=== PATIENT | male | born 1930 | race Caucasian/White ===

== ENCOUNTER 2019-05-09 22:59 | Inpatient (IN) | payer MEDICAID, MEDICARE, OTHER ==
[~2019-05-09] VITALS: Ht 177.8 cm; Wt 79.6 kg
[~2019-05-09 22:59] MED LIST: ASPI-612 PO; ATOR10TA87 PO; CLOP75TA35 PO; FURO-150 PO; GLIP-126 PO; LISI-600 PO; NORCO10T PO; POTA20TA84 PO
[2019-05-09 23:39] LABS: BASOPHILS # (AUTO) 0.1 X10'3 (0-0.2); EOSINOPHILS # (AUTO) 0.4 X10'3 (0-0.9); EOSINOPHILS % (AUTO) 4.4 % (0-6); HEMATOCRIT 38.6 % (42.0-52.0); HEMOGLOBIN 12.8 g/dl (14.0-17.9); LYMPHOCYTES # (AUTO) 0.4 X10'3 (1.1-4.8); LYMPHOCYTES % (AUTO) 4.4 % (21-51); MEAN CORPUSCULAR HEMOGLOBIN 29.6 PG (27.0-31.0); MEAN CORPUSCULAR HGB CONC 33.2 g/dL (33.0-36.5); MEAN CORPUSCULAR VOLUME 89.1 FL (78-98); MEAN PLATELET VOLUME 8.1 FL (7.4-10.4); MONOCYTES # (AUTO) 0.5 X10'3 (0-0.9); MONOCYTES % (AUTO) 5.7 % (2-12); NEUTROPHILS # (AUTO) 7.8 X10'3 (1.8-7.7); NEUTROPHILS % (AUTO) 84.5 % (42-75); PLATELET COUNT 218 X10'3 (140-440); RED BLOOD COUNT 4.33 X10'6 (4.70-6.10); RED CELL DISTRIBUTION WIDTH 15.2 % (11.5-14.5); WHITE BLOOD COUNT 9.2 X10'3 (4.5-11.0)
[2019-05-09 23:43] LABS: PARTIAL THROMBOPLASTIN TIME 27 SECONDS (22-32)
[2019-05-09 23:45] LABS: ALANINE AMINOTRANSFERASE 17 U/L (12-78); ALBUMIN 3.2 G/DL (3.4-5.0); ALBUMIN/GLOBULIN RATIO 0.8 (1.1-1.5); ALKALINE PHOSPHATASE 91 IU/L (46-116); ANION GAP 9 (8-16); ASPARTATE AMINO TRANSFERASE 19 U/L (10-37); BILIRUBIN,TOTAL 0.2 MG/DL (0.1-1.0); BLOOD UREA NITROGEN 32 MG/DL (7-18); BUN/CREATININE RATIO 16.6 (5.4-32.0); CALCIUM 8.3 MG/DL (8.5-10.1); CHLORIDE 105 MMOL/L (99-107); CREATININE 1.93 MG/DL (0.60-1.10); GLUCOSE 102 MG/DL (70-104); POTASSIUM 4.3 MMOL/L (3.5-5.1); SODIUM 139 MMOL/L (135-145); TOTAL CARBON DIOXIDE 24.8 MMOL/L (24-32); eGFR 33 ML/MIN
[2019-05-09 23:48] LABS: TROPONIN I 0.09 NG/ML (0.0-0.05)
[2019-05-10] MEDS ORDERED: heparin 10,000 units/1 ML INJ IV ONE (01:50)
[2019-05-10] MEDS ORDERED: heparin 10,000 units/1 ML INJ IV PRN ×2 (01:50→03:05)
[2019-05-10] MEDS: heparin 25,000 UNIT/250ml bag 250 ML IV SCH ×2 (02:14→10:07)
[2019-05-10] MEDS ORDERED: ASPI-1265 PO (02:24)
[2019-05-10] MEDS ORDERED: LISI-600 PO (02:24)
[2019-05-10] MEDS ORDERED: FLO0.4C PO (02:24)
[2019-05-10] MEDS ORDERED: FINA5TAB11 PO (02:24)
[2019-05-10] MEDS ORDERED: heparin 25,000 UNIT/250ml bag 250 ML IV SCH (03:04)
[2019-05-10] MEDS ORDERED: insulin Lispro (HumaLOG) vial - multi-dose SQ SCH (03:05)
[2019-05-10] MEDS ORDERED: glucagon, human recombinant 1mg kit SUBCUT PRN (03:05)
[2019-05-10] MEDS ORDERED: docusate sod 100mg capsule PO PRN (03:05)
[2019-05-10] MEDS ORDERED: magnesium 2GM in 50ml NS 50 ML IV PRN (03:05)
[2019-05-10] MEDS ORDERED: mag hydrox/Alum hydrox/simeth 30ml oral suspension PO PRN (03:05)
[2019-05-10] MEDS ORDERED: dextrose 50%-water 50ml dispensing syringe IV PRN ×2 (03:05)
[2019-05-10] MEDS ORDERED: potassium Cl 20 mEq SR tablet PO PRN ×2 (03:05)
[2019-05-10] MEDS ORDERED: potassium CL 10mEq/100ml bag 100 ML IV PRN ×2 (03:05)
[2019-05-10] MEDS ORDERED: dextrose ORAL solution 15 GM/59 ML bottle PO PRN ×2 (03:05)
[2019-05-10] MEDS ORDERED: acetaminophen 325mg tablet PO PRN (03:05)
[2019-05-10] MEDS ORDERED: magnesium 4gm in 100ml NS 100 ML IV PRN (03:05)
[2019-05-10] MEDS ORDERED: MESSAGE TO PHARMACY PO ONE (03:05)
[2019-05-10] MEDS ORDERED: ondansetron/PF 4mg/2ml inj IV PRN (03:05)
[2019-05-10 03:32] LABS: HEMOGLOBIN A1C 5.5 % (4.5-6.2)
--- NOTE | 2019-05-10 04:20 | NUR ---
I have received report from EMANUEL Royal in ER and had the opportunity to ask questions and assume patient care. Awaiting patient arrival into [facility].
[2019-05-10 04:40] VITALS: BP 163/87
--- NOTE | 2019-05-10 04:58 | NUR ---
Patient arrived to floor via gurney by ED staff, EMANUEL Diez and mary carmen. Ambulated from gurney to bed in 3 with 2 person assist. Patient on room air and slightly dyspneic. O2 97%. On heparin gtt infusing at 1000 units/hr per provider protocol. Alert and oriented to person, place, time, and events. Patient states belongings went home with son.
[2019-05-10 06:00] VITALS: BP 126/74
--- NOTE | 2019-05-10 06:13 | NUR ---
Patient in room PCU 3028. I have received report from Alex CASTELLANOS and had the opportunity to ask questions and assume patient care.
--- NOTE | 2019-05-10 06:25 | NUR ---
Problems reprioritized. Patient report given, questions answered & plan of care reviewed with EMANUEL Cazares and EMANUEL French.
--- NOTE | 2019-05-10 06:33 | NUR ---
Page Dr. Benedict PAGER ID: [phone] MESSAGE: Room 3028A Karthik Rasmussen: Patient's 6 hour Troponin results are 2.15. Thank you, Gillian ext [phone].
[2019-05-10] MEDS: tamsulosin 0.4mg capsule PO SCH (07:07)
[2019-05-10] MEDS: furosemide 20MG tablet PO SCH (07:08)
[2019-05-10] MEDS: atorvastatin 20mg tablet PO SCH (07:09)
[2019-05-10] MEDS: K and/or MAG REPLACEMENT MC SCH (08:00)
[2019-05-10 10:15] LABS: BASOPHILS # (AUTO) 0.1 X10'3 (0-0.2); BASOPHILS % (AUTO) 1.2 % (0-1); EOSINOPHILS # (AUTO) 0.2 X10'3 (0-0.9); HEMATOCRIT 33.5 % (42.0-52.0); HEMOGLOBIN 11.1 g/dl (14.0-17.9); LYMPHOCYTES # (AUTO) 0.4 X10'3 (1.1-4.8); LYMPHOCYTES % (AUTO) 7.3 % (21-51); MEAN CORPUSCULAR HEMOGLOBIN 29.9 PG (27.0-31.0); MEAN CORPUSCULAR HGB CONC 33.3 g/dL (33.0-36.5); MEAN CORPUSCULAR VOLUME 89.8 FL (78-98); MONOCYTES # (AUTO) 0.5 X10'3 (0-0.9); MONOCYTES % (AUTO) 7.7 % (2-12); NEUTROPHILS # (AUTO) 4.9 X10'3 (1.8-7.7); NEUTROPHILS % (AUTO) 79.8 % (42-75); PLATELET COUNT 180 X10'3 (140-440); RED BLOOD COUNT 3.73 X10'6 (4.70-6.10); RED CELL DISTRIBUTION WIDTH 15.1 % (11.5-14.5); WHITE BLOOD COUNT 6.1 X10'3 (4.5-11.0)
[2019-05-10 10:25] LABS: ALBUMIN 3.4 G/DL (3.4-5.0); ANION GAP 10 (8-16); BLOOD UREA NITROGEN 32 MG/DL (7-18); BUN/CREATININE RATIO 19.5 (5.4-32.0); CALCIUM 8.7 MG/DL (8.5-10.1); CHLORIDE 108 MMOL/L (99-107); CREATININE 1.64 MG/DL (0.60-1.10); GLUCOSE 103 MG/DL (70-104); POTASSIUM 4.4 MMOL/L (3.5-5.1); SODIUM 142 MMOL/L (135-145); TOTAL CARBON DIOXIDE 23.8 MMOL/L (24-32); eGFR 40 ML/MIN
[2019-05-10] MEDS: finasteride 5mg tablet PO SCH (10:35)
[2019-05-10 11:00] VITALS: BP 162/84
[2019-05-10] MEDS ORDERED: NITR0.4T51 PO (12:03)
--- NOTE | 2019-05-10 12:51 | NUR ---
Page to Dr. Benedict: PAGER ID: [phone] MESSAGE: [id number] Grady: JERED, 12hr troponin is 3.36. ThanksDebora [phone] Addendum: 05/10/19 at 1514 by Debora Levy RN Error, paged Dr. Galvez
[2019-05-10] MEDS: lisinopril 10 MG tablet PO SCH (13:29)
[2019-05-10 15:00] VITALS: BP 164/74
--- NOTE | 2019-05-10 18:10 | NUR ---
Problems reprioritized. Patient report given, questions answered & plan of care reviewed with Rosy CASTELLANOS. Patient stable at time of transfer of care. Addendum: 05/10/19 at 1818 by Gillian Yusuf RN Correction report given to Bernard CASTELLANOS.
--- NOTE | 2019-05-10 18:17 | NUR ---
[place] documentation: I have reviewed and agree with all interventions, assessments performed and documented by Gillian CASTELLANOS. [place] Medication Administration: For this medication-pass time frame, all medication were reviewed, dispensed, administered and documented per hospital policy by Gillian CASTELLANOS.
--- NOTE | 2019-05-10 18:25 | NUR ---
Patient in room PCU 3028. I have received report from Lei CASTELLANOS and had the opportunity to ask questions and assume patient care. Bedside report completed. Family present, fall, bleeding precaution implemented and education provided.
[2019-05-10 18:47] VITALS: BP 118/79
[2019-05-10] MEDS: insulin glargine (Lantus) pen - multi-dose SQ SCH (21:00)
[2019-05-10 23:00] VITALS: BP 140/72
[2019-05-11] MEDS: heparin 25,000 UNIT/250ml bag 250 ML IV SCH ×3 (00:04→06:02)
[2019-05-11 02:15] VITALS: BP 159/70
[2019-05-11 05:16] LABS: BASOPHILS # (AUTO) 0.1 X10'3 (0-0.2); BASOPHILS % (AUTO) 1.3 % (0-1); EOSINOPHILS # (AUTO) 0.4 X10'3 (0-0.9); EOSINOPHILS % (AUTO) 6.8 % (0-6); HEMATOCRIT 41.4 % (42.0-52.0); HEMOGLOBIN 13.8 g/dl (14.0-17.9); LYMPHOCYTES # (AUTO) 0.6 X10'3 (1.1-4.8); LYMPHOCYTES % (AUTO) 9.3 % (21-51); MEAN CORPUSCULAR HEMOGLOBIN 29.6 PG (27.0-31.0); MEAN CORPUSCULAR HGB CONC 33.2 g/dL (33.0-36.5); MEAN CORPUSCULAR VOLUME 89.3 FL (78-98); MEAN PLATELET VOLUME 8.6 FL (7.4-10.4); MONOCYTES # (AUTO) 0.6 X10'3 (0-0.9); MONOCYTES % (AUTO) 8.8 % (2-12); NEUTROPHILS # (AUTO) 4.8 X10'3 (1.8-7.7); NEUTROPHILS % (AUTO) 73.8 % (42-75); PLATELET COUNT 246 X10'3 (140-440); RED BLOOD COUNT 4.64 X10'6 (4.70-6.10); RED CELL DISTRIBUTION WIDTH 15.6 % (11.5-14.5); WHITE BLOOD COUNT 6.5 X10'3 (4.5-11.0)
[2019-05-11 05:22] LABS: PARTIAL THROMBOPLASTIN TIME 60 SECONDS (22-32)
[2019-05-11 05:37] LABS: ANION GAP 8 (8-16); BILIRUBIN,TOTAL 0.4 MG/DL (0.1-1.0); BLOOD UREA NITROGEN 27 MG/DL (7-18); BUN/CREATININE RATIO 19.1 (5.4-32.0); CALCIUM 8.9 MG/DL (8.5-10.1); CHLORIDE 104 MMOL/L (99-107); CREATININE 1.41 MG/DL (0.60-1.10); GLUCOSE 114 MG/DL (70-104); POTASSIUM 3.9 MMOL/L (3.5-5.1); SODIUM 139 MMOL/L (135-145); TOTAL CARBON DIOXIDE 27.1 MMOL/L (24-32); TOTAL PROTEIN 7.2 G/DL (6.4-8.2); eGFR 48 ML/MIN
[2019-05-11 05:38] LABS: ALANINE AMINOTRANSFERASE 16 U/L (12-78); ALBUMIN 3.2 G/DL (3.4-5.0); ALBUMIN/GLOBULIN RATIO 0.8 (1.1-1.5); ALKALINE PHOSPHATASE 92 IU/L (46-116); ASPARTATE AMINO TRANSFERASE 29 U/L (10-37); CHOL/HDL RATIO 3.3 (0.00-4.99); CHOLESTEROL 181 MG/DL (0-200); HDL CHOLESTEROL 55 MG/DL (35-60); LDL CHOLESTEROL 116 MG/DL (50-100); TRIGLYCERIDES 78 MG/DL (20-135)
[2019-05-11 06:00] VITALS: BP 171/77
[2019-05-11] MEDS: K and/or MAG REPLACEMENT MC SCH (06:02)
--- NOTE | 2019-05-11 06:15 | NUR ---
Patient in room PCU 3028. I have received report from Claire Pinzon had the opportunity to ask questions and assume patient care.
--- NOTE | 2019-05-11 06:23 | NUR ---
Problems reprioritized. Patient report given Alex CASTELLANOS, questions answered & plan of care reviewed with Bedside report. pt resting quielty, bed alarm on. no distress noted. .
--- NOTE | 2019-05-11 06:36 | NUR ---
Patient in room PCU 3028. I have received report from EMANUEL Rangel and had the opportunity to ask questions and assume patient care.
[2019-05-11] MEDS: lisinopril 10 MG tablet PO SCH (07:50)
[2019-05-11] MEDS: furosemide 20MG tablet PO SCH (07:50)
[2019-05-11] MEDS: finasteride 5mg tablet PO SCH (07:50)
[2019-05-11] MEDS: tamsulosin 0.4mg capsule PO SCH (07:51)
[2019-05-11] MEDS: atorvastatin 20mg tablet PO SCH (07:51)
--- NOTE | 2019-05-11 10:13 | NUR ---
PAGER ID: [phone] MESSAGE: RE: Karthik Rasmussen, Room: 302. critical single trop of 4.01 -[facility] #[id number] Dr. Galvez paged concerning Pt's critical single trop.
[2019-05-11] MEDS: clopidogrel 75mg tablet PO SCH (10:43)
[2019-05-11] MEDS: aspirin 325mg tablet PO SCH (10:43)
[2019-05-11 11:00] VITALS: BP 155/71
[2019-05-11 15:00] VITALS: BP 156/73
[2019-05-11 18:00] VITALS: BP 141/77
--- NOTE | 2019-05-11 18:15 | NUR ---
Problems reprioritized. Patient report given, questions answered & plan of care reviewed with Melinda CASTELLANOS.
[2019-05-11] MEDS: insulin glargine (Lantus) pen - multi-dose SQ SCH (21:00)
[2019-05-11 23:00] VITALS: BP 139/64
[2019-05-12 03:00] VITALS: BP 161/66
[2019-05-12 05:56] LABS: BASOPHILS # (AUTO) 0.1 X10'3 (0-0.2); BASOPHILS % (AUTO) 1.3 % (0-1); EOSINOPHILS # (AUTO) 0.5 X10'3 (0-0.9); EOSINOPHILS % (AUTO) 7.5 % (0-6); HEMATOCRIT 39.6 % (42.0-52.0); HEMOGLOBIN 13.1 g/dl (14.0-17.9); LYMPHOCYTES # (AUTO) 0.6 X10'3 (1.1-4.8); LYMPHOCYTES % (AUTO) 9.4 % (21-51); MEAN CORPUSCULAR HEMOGLOBIN 29.5 PG (27.0-31.0); MEAN CORPUSCULAR HGB CONC 33.2 g/dL (33.0-36.5); MONOCYTES # (AUTO) 0.6 X10'3 (0-0.9); MONOCYTES % (AUTO) 9.5 % (2-12); NEUTROPHILS # (AUTO) 4.5 X10'3 (1.8-7.7); NEUTROPHILS % (AUTO) 72.3 % (42-75); PLATELET COUNT 230 X10'3 (140-440); RED BLOOD COUNT 4.45 X10'6 (4.70-6.10); RED CELL DISTRIBUTION WIDTH 15.2 % (11.5-14.5); WHITE BLOOD COUNT 6.2 X10'3 (4.5-11.0)
[2019-05-12 06:00] VITALS: BP 171/66
--- NOTE | 2019-05-12 06:20 | NUR ---
Patient in room PCU 3028. I have received report from Melinda CASTELLANOS and had the opportunity to ask questions and assume patient care.
[2019-05-12 06:31] LABS: ALANINE AMINOTRANSFERASE 18 U/L (12-78); ALBUMIN 2.9 G/DL (3.4-5.0); ALBUMIN/GLOBULIN RATIO 0.8 (1.1-1.5); ALKALINE PHOSPHATASE 84 IU/L (46-116); ANION GAP 8 (8-16); ASPARTATE AMINO TRANSFERASE 30 U/L (10-37); BILIRUBIN,TOTAL 0.3 MG/DL (0.1-1.0); BLOOD UREA NITROGEN 29 MG/DL (7-18); CALCIUM 8.4 MG/DL (8.5-10.1); CHLORIDE 106 MMOL/L (99-107); CREATININE 1.45 MG/DL (0.60-1.10); GLUCOSE 96 MG/DL (70-104); POTASSIUM 4.2 MMOL/L (3.5-5.1); SODIUM 141 MMOL/L (135-145); TOTAL PROTEIN 6.6 G/DL (6.4-8.2); eGFR 46 ML/MIN
--- NOTE | 2019-05-12 06:50 | NUR ---
Problems reprioritized. Patient report given, questions answered & plan of care reviewed with herrera paez.
[2019-05-12] MEDS: aspirin 325mg tablet PO SCH (07:17)
[2019-05-12] MEDS: finasteride 5mg tablet PO SCH (07:17)
[2019-05-12] MEDS: clopidogrel 75mg tablet PO SCH (07:17)
[2019-05-12] MEDS: furosemide 20MG tablet PO SCH (07:17)
[2019-05-12] MEDS: atorvastatin 20mg tablet PO SCH (07:17)
[2019-05-12] MEDS: tamsulosin 0.4mg capsule PO SCH (07:18)
[2019-05-12] MEDS: lisinopril 10 MG tablet PO SCH (07:19)
[2019-05-12] MEDS: K and/or MAG REPLACEMENT MC SCH (08:00)
[2019-05-12 11:00] VITALS: BP 141/71
--- NOTE | 2019-05-12 11:47 | NUR ---
PAGER ID: [phone] MESSAGE: Re: Karthik Rasmussen. Room: 302. Critical single trop .87. -[facility] #[id number] Dr. Galvez paged concerning Pt's critical trop of 87
[2019-05-12] MEDS ORDERED: ATOR20TA66 PO (12:03)
[2019-05-12] MEDS ORDERED: CLOP75TA15 PO (12:03)
[2019-05-12] MEDS ORDERED: CARV3.12 PO (12:10)
[2019-05-12] MEDS ORDERED: FLU VACC QS2019-20 36MOS UP/PF 60 MCG/0.5 ML SYRINGE IMVAC ONE (12:20)
[2019-05-12] MEDS ORDERED: pneumococcal 23-VAL P-sac vacc 25 mcg/0.5ml vial IMVAC ONE (12:25)
--- NOTE | 2019-05-12 14:00 | NUR ---
Pt DC'd home with son. IV removed, canula intact. Tele-box removed and returned to tele-tech. Pt stable and vitals WNL upon DC. Pt's new meds called into [facility] pharmacy in [place]. DC paperwork gone over with Pt and allowed both Pt and son to ask questions concerning DC and then answer them. Follow up appt made for Pt for Dr. Saldana, unfortunately the next appt they had wasn't until 06/29/19 at 1400. Pt will call Dr. Quijano office periodically to see if any cancelations and closer appts can be made. Pt is in process of becoming Pt at [facility] in [place] under Dr. Helm. Pt has appt to see Dr. Helm the first week of May. Pt's belongings gathered and sent with Pt. Pt wheeled down to lobby in wheelchair by nursing home social worker where they left with their son in private vehicle.
--- NOTE | 2019-05-12 14:00 | NUR ---
Pt refused flu shot and pneomococcal shot. Pt states that he gets them yearly with his at the local [facility] in [place].
== END 2019-05-12 14:59 | disposition home or self-care (01) | DRG 280 ==
LOC: ER 22:59 → ED HOLD 05-10 03:14 → PCU 3S 05-10 04:42
PROVIDERS: ADMIT Family Medicine; ATTEND Family Medicine
DX: I21.4 Non-ST elevation (NSTEMI) myocardial infarction (principal); N17.0 Acute kidney failure with tubular necrosis; I42.9 Cardiomyopathy, unspecified; I50.22 Chronic systolic (congestive) heart failure; I25.810 Atherosclerosis of coronary artery bypass graft(s) without angina pectoris; I44.7 Left bundle-branch block, unspecified; E11.65 Type 2 diabetes mellitus with hyperglycemia; E78.5 Hyperlipidemia, unspecified; H35.30 Unspecified macular degeneration; I11.0 Hypertensive heart disease with heart failure; E11.51 Type 2 diabetes mellitus with diabetic peripheral angiopathy without gangrene; I25.10 Atherosclerotic heart disease of native coronary artery without angina pectoris; I35.9 Nonrheumatic aortic valve disorder, unspecified; N40.0 Benign prostatic hyperplasia without lower urinary tract symptoms; Z79.02 Long term (current) use of antithrombotics/antiplatelets; Z80.3 Family history of malignant neoplasm of breast; Z82.49 Family history of ischemic heart disease and other diseases of the circulatory system; I25.2 Old myocardial infarction; Z95.3 Presence of xenogenic heart valve; Z95.5 Presence of coronary angioplasty implant and graft; Z28.21 Immunization not carried out because of patient refusal; Z88.2 Allergy status to sulfonamides; Z91.013 Allergy to seafood; Z95.1 Presence of aortocoronary bypass graft; Z79.899 Other long term (current) drug therapy; Z79.82 Long term (current) use of aspirin
CPT/HCPCS: 36415; 71045; 76937; 80048; 80053; 80061; 82948; 83036; 83735; 84484; 85025; 85610; 85730; 87081; 93005; 93306; 96374; 99291; G0378; J1644; J1815